=== PATIENT | male | born 2000 | race Caucasian/White ===

== ENCOUNTER 2023-02-08 16:52 | Emergency (ER) | payer OTHER ==
[~2023-02-08] VITALS: Ht 185.4 cm; Wt 81.0 kg
[2023-02-08 16:53] VITALS: BP 134/69; TEMP 98.1; O2SAT 99
[2023-02-08 19:07] LABS: CHLAMYDIA DNA AMPLIFICATION NEGATIVE (NEGATIVE); GC DNA AMPLIFICATION NEGATIVE (NEGATIVE)
[2023-02-11 15:09] LABS: HSV TYPE I IgG SPECIFIC >62.20 index (0.00-0.90); HSV TYPE II IgG SPECIFIC <0.91 index (0.00-0.90)
== END 2023-02-08 19:42 | disposition home or self-care (01) ==
LOC: M ED 16:52
DX: Z11.3 Encounter for screening for infections with a predominantly sexual mode of transmission (principal); F17.290 Nicotine dependence, other tobacco product, uncomplicated

== ENCOUNTER 2023-05-19 20:06 | Inpatient (IN) | payer OTHER ==
[~2023-05-19] VITALS: Ht 185.4 cm; Wt 84.1 kg
[2023-05-19] MEDS: NICOTINE 21MG/24HR 1 EA TRANSDERMAL TD ONE (22:02)
[2023-05-19] MEDS ORDERED: HYDR50TA70 PO (22:31)
[2023-05-19] MEDS ORDERED: SERT50TA29 PO (22:31)
[2023-05-19] MEDS ORDERED: FLUO20CA22 PO (22:31)
[2023-05-19] MEDS ORDERED: HYDR-4571 PO (22:31)
[2023-05-19] MEDS ORDERED: HOME MED LIST COMPLETE! XX SCH (22:35)
[2023-05-19 22:40] LABS: HEMATOCRIT 42.8 % (42.0-52.0); HEMOGLOBIN 14.5 g/dl (13.5-17.5); MEAN CORPUSCULAR HEMOGLOBIN 31.3 pg (27.0-33.0); MEAN CORPUSCULAR HGB CONC 33.9 g/dl (32.0-36.5); MEAN CORPUSCULAR VOLUME 92.4 fl (80.0-96.0); PLATELET COUNT, AUTOMATED 340 10^3/uL (150-450); RED BLOOD COUNT 4.63 10^6/uL (4.30-6.10)
[2023-05-19 22:44] LABS: ETHYL ALCOHOL (ETHANOL) < 0.003 % (0.000-0.010)
[2023-05-19 22:45] LABS: ALBUMIN 4.2 G/DL (3.2-5.2); ALKALINE PHOSPHATASE 84 U/L (46-116); ALT/SGPT 28 U/L (7.0-40); AST/SGOT 20 U/L (<34); BILIRUBIN,DIRECT 0.1 MG/DL (<0.4); BILIRUBIN,TOTAL 0.4 MG/DL (0.3-1.2); BLOOD UREA NITROGEN 15 MG/DL (9-23); CALCIUM LEVEL 9.1 MG/DL (8.5-10.1); CARBON DIOXIDE LEVEL 28 MMOL/L (20-31); CHLORIDE LEVEL 109 MMOL/L (98-107); GLUCOSE, FASTING 83 MG/DL (60-100); POTASSIUM SERUM 4.1 MMOL/L (3.5-5.1); SALICYLATE LEVEL < 3.0 MG/DL (<30); SODIUM LEVEL 143 MMOL/L (136-145); TOTAL PROTEIN 6.8 G/DL (5.7-8.2)
[2023-05-19 22:49] LABS: THYROID STIMULATING HORMONE 1.302 uIU/ML (0.48-4.17)
[2023-05-19 23:24] LABS: AMPHETAMINES LEVEL URINE NEGATIVE (NEGATIVE); BARBITURATES URINE NEGATIVE (NEGATIVE); BENZODIAZEPINES URINE NEGATIVE (NEGATIVE); COCAINE METABOLITE URINE NEGATIVE (NEGATIVE); METHADONE URINE NEGATIVE (NEGATIVE)
[2023-05-19 23:25] LABS: CANNABINOIDS URINE NEGATIVE (NEGATIVE); OPIATES URINE NEGATIVE (NEGATIVE); PHENCYCLIDINE URINE NEGATIVE (NEGATIVE)
[2023-05-20] MEDS ORDERED: hydrOXYzine 50 MG TAB PO PRN (07:35)
[2023-05-20] MEDS: NICOTINE 21MG/24HR 1 EA TRANSDERMAL TD ONE (15:02)
[2023-05-20] MEDS ORDERED: MAALOX 30 ML SUSP *UDC PO PRN (17:45)
[2023-05-20] MEDS ORDERED: traZODone 50 MG TAB PO PRN (17:45)
[2023-05-20] MEDS ORDERED: diphenhydrAMINE 25MG CAP PO PRN (17:45)
[2023-05-20] MEDS ORDERED: MOM 30ML SUSPENSION UDC PO PRN (17:45)
[2023-05-20] MEDS ORDERED: ACETAMINOPHEN TAB 650MG DOSE (2X325MG) PO PRN (17:45)
[2023-05-20] MEDS ORDERED: IBUPROFEN 400MG TAB PO PRN (17:45)
[2023-05-20 18:42] VITALS: BP 115/61; TEMP 97.5; O2SAT 97
[2023-05-20] MEDS: FLUoxetine 20MG CAP PO SCH (20:06)
[2023-05-20] MEDS: SERTRALINE HCL 25 MG TABLET PO SCH (20:06)
[2023-05-21 06:26] VITALS: BP 118/59; TEMP 98.2; O2SAT 96
[2023-05-21] MEDS: NICOTINE 21MG/24HR 1 EA TRANSDERMAL TD SCH (16:38)
[2023-05-21 17:34] VITALS: BP 122/59; TEMP 97.5; O2SAT 98
[2023-05-22 06:31] VITALS: BP 124/66; TEMP 97.3; O2SAT 98
[2023-05-22 06:33] VITALS: BP 114/74; TEMP 96.4; O2SAT 96
[2023-05-22 17:06] VITALS: BP 120/64; TEMP 98.3
[2023-05-23 06:27] VITALS: BP 133/61; TEMP 97.7; O2SAT 99
== END 2023-05-23 12:54 | disposition home or self-care (01) | DRG 881 ==
LOC: M ED 20:06 → M PSY 05-20 17:41 → M ED 05-20 17:54
PROVIDERS: ADMIT Student in an Organized Health Care Education/Training Program; ATTEND Student in an Organized Health Care Education/Training Program
DX: F32.A Depression, unspecified (principal); R45.851 Suicidal ideations; F32.9 Major depressive disorder, single episode, unspecified; G47.00 Insomnia, unspecified; Z79.899 Other long term (current) drug therapy

== ENCOUNTER 2023-08-19 19:01 | Emergency (ER) | payer OTHER ==
[~2023-08-19] VITALS: Ht 182.9 cm; Wt 89.8 kg
[2023-08-19 19:01] VITALS: BP 147/89; TEMP 98.8
[~2023-08-19 19:01] MED LIST: FLUO20CA22 PO; HYDR-4571 PO; HYDR50TA70 PO; SERT50TA29 PO
[2023-08-19 19:09] VITALS: O2SAT 96
[2023-08-19 19:40] LABS: BASO # 0.1 10^3/uL (0.0-0.2); BASO % 0.9 % (0.0-1.0); EOS # 0.1 10^3/uL (0.0-0.5); EOS % 0.7 % (0.0-3.0); HEMATOCRIT 41.3 % (42.0-52.0); HEMOGLOBIN 14.2 g/dl (13.5-17.5); LYMPH # 1.3 10^3/uL (1.5-5.0); LYMPH % 17.6 % (24.0-44.0); MEAN CORPUSCULAR HEMOGLOBIN 31.1 pg (27.0-33.0); MEAN CORPUSCULAR HGB CONC 34.4 g/dl (32.0-36.5); MEAN CORPUSCULAR VOLUME 90.4 fl (80.0-96.0); MONO # 1.2 10^3/uL (0.0-0.8); MONO % 16.1 % (2.0-8.0); NEUTROPHILS # 4.8 10^3/uL (1.5-8.5); NEUTROPHILS % 64.6 % (36.0-66.0); PLATELET COUNT, AUTOMATED 318 10^3/uL (150-450); RED BLOOD COUNT 4.57 10^6/uL (4.30-6.10); WHITE BLOOD COUNT 7.4 10^3/uL (4.0-10.0)
[2023-08-19 19:54] LABS: BLOOD UREA NITROGEN 8 MG/DL (9-23); CALCIUM LEVEL 8.5 MG/DL (8.5-10.1); CARBON DIOXIDE LEVEL 25 MMOL/L (20-31); CHLORIDE LEVEL 108 MMOL/L (98-107); CREATININE FOR GFR 0.97 MG/DL (0.70-1.30); GLUCOSE, FASTING 92 MG/DL (60-100); POTASSIUM SERUM 4.1 MMOL/L (3.5-5.1); SODIUM LEVEL 140 MMOL/L (136-145)
[2023-08-19 20:03] LABS: RSV AMPLIFICATION NEGATIVE (NEGATIVE)
[2023-08-19] MEDS: IBUPROFEN 600MG TAB PO ONE (20:21)
== END 2023-08-19 20:24 | disposition home or self-care (01) ==
LOC: M ED 19:01
DX: J06.9 Acute upper respiratory infection, unspecified (principal); F32.A Depression, unspecified; F41.9 Anxiety disorder, unspecified; Z79.811 Long term (current) use of aromatase inhibitors; Z79.899 Other long term (current) drug therapy

== ENCOUNTER 2024-02-05 08:15 | Day surgery (SDC) | payer OTHER ==
[~2024-02-05] VITALS: Ht 185.4 cm; Wt 93.7 kg
[~2024-02-05 08:15] MED LIST changes: +BUPR-597 PO; +FLUO-365 PO; -FLUO20CA22 PO; +TRANEXAMIC ACID 100 MG/ML 10ML VIAL IV ONE; +TRAZ1TAB10 PO
[2024-02-05] MEDS ORDERED: propofoL 200 MG/20 ML VIAL As Ordered ONE (09:15)
[2024-02-05] MEDS ORDERED: LIDOCAINE 2% 100MG/5ML SDV (FOR ANES.) As Ordered ONE (09:15)
[2024-02-05] MEDS ORDERED: SUGAMMADEX SODIUM 500 MG/5 ML VIAL (BRIDION) As Ordered ONE (09:15)
[2024-02-05] MEDS ORDERED: ROCURONIUM BROMIDE 50MG/5ML VIAL As Ordered ONE (09:15)
[2024-02-05] MEDS ORDERED: ACETAMINOPHEN 1000MG/100ML IV BAG As Ordered ONE (09:15)
[2024-02-05] MEDS ORDERED: KETOROLAC 60MG 2ML VIAL As Ordered ONE (09:16)
[2024-02-05] MEDS ORDERED: fentaNYL 100 MCG/2 ML INJECTION As Ordered ONE (09:16)
[2024-02-05] MEDS ORDERED: ONDANSETRON 4MG 2ML VIAL As Ordered ONE (09:16)
[2024-02-05] MEDS ORDERED: ROPIvacaine 0.5% 30ML VIAL PN ONE (09:55)
[2024-02-05] MEDS: MIDAZOLAM INJ 2MG/2ML VIAL IV PRN (10:10)
[2024-02-05] MEDS: fentaNYL 100 MCG/2 ML INJECTION IV PRN (10:10)
[2024-02-05] MEDS: LIDOCAINE W/EPINEPHRINE 1% 20ML VIAL As Ordered ONE (10:11)
[2024-02-05] MEDS: dexAMETHasone 10MG/1ML VIAL PRES.FREE PN ONE (10:12)
[2024-02-05] MEDS: MIDAZOLAM INJ 2MG/2ML VIAL IV ONE (10:12)
[2024-02-05] MEDS: ROPIvacaine 0.5% 30ML VIAL PN ONE (10:12)
[2024-02-05] MEDS: ceFAZolin SOD 2 GM in IV 1 EA IV ONE (11:23)
[2024-02-05] MEDS: TRANEXAMIC ACID 100 MG/ML 10ML VIAL As Ordered ONE (11:36)
[2024-02-05] MEDS: EPINEPHrine INJ 1 MG/ML 1ML AMP As Ordered ONE (12:00)
[2024-02-05] MEDS ORDERED: HYDROmorphone HCL 2MG/ML 1ML VIAL As Ordered ONE (12:31)
[2024-02-05] MEDS ORDERED: HYDROMORPHONE HCL 0.5 MG/ 0.5 ML SYRINGE IV PRN (12:45)
[2024-02-05] MEDS ORDERED: NS 250 ML IV SCH (12:45)
[2024-02-05] MEDS ORDERED: oxyCODONE 5MG TAB PO PRN (12:45)
[2024-02-05] MEDS ORDERED: fentaNYL 100 MCG/2 ML INJECTION IV PRN (12:45)
[2024-02-05] MEDS: VANCOMYCIN 1000MG/20ML VIAL As Ordered ONE (12:46)
[2024-02-05] MEDS ORDERED: GLYCOPYRROLATE INJ 0.2 MG/ML 2 ML VIAL As Ordered ONE (12:55)
[2024-02-05] MEDS: ONDANSETRON 4MG 2ML VIAL IV PRN (13:55)
[2024-02-05] MEDS: PROMETHAZINE 25MG/ML 1ML VIAL IV ONE (14:10)
[2024-02-05 15:45] VITALS: BP 121/65; TEMP 96.8; O2SAT 98
== END 2024-02-05 15:49 | disposition home or self-care (01) ==
LOC: M SDC 08:15
PROVIDERS: ATTEND Orthopaedic Surgery
DX: M65.811 Other synovitis and tenosynovitis, right shoulder (principal); M75.41 Impingement syndrome of right shoulder; K21.9 Gastro-esophageal reflux disease without esophagitis; F17.218 Nicotine dependence, cigarettes, with other nicotine-induced disorders; Z79.899 Other long term (current) drug therapy; F41.9 Anxiety disorder, unspecified
CPT/HCPCS: 29822; 29826; 64415; J0131; J0171; J0690; J1100; J1171; J1596; J1885; J2250; J2405; J2550; J2795; J3010